=== PATIENT | female | born 1965 | race Caucasian/White ===

== ENCOUNTER 2017-07-04 20:33 | Emergency (ER) | payer OTHER ==
[2017-07-04] MEDS ORDERED: Amoxicillin/Clavulanate TAB* 875 MG PO ONE ×2 (20:53→20:54)
[2017-07-04 20:54] VITALS: BP 140/79
--- NOTE | 2017-07-04 21:24 | UC ---
Andrey Negro Natalie, scribed for Azael Rust MD on 07/04/17 at 2056 . Bite Injury/Animal HPI - HPI Summary HPI Summary: The patient is a 52 y/o F presenting to c/o cat bite on right hand at 10:00 today. She was sitting on the couch when her dog sat on her cat, and she went to move the dog when her cat clamped on to her hand and created four puncture wounds. There is red streaking going up her right wrist with some bleeding from the wound. Her whole hand is erythematous. She is UTD on her tetanus shot, and she had a rabies vaccine two years ago. - History of Current Complaint Stated Complaint: ANIMAL BITE Hx Obtained From: Patient Hx Last Menstrual Period: JULY Severity Currently: Moderate Severity Initially: Moderate Pain Scale Used: 0-10 Numeric Onset/Duration: Sudden Onset, Lasting Hours - started at 10:00 today, Still Present Type of Bite: Animal - domesticated cat Character: Puncture Aggravating Factor(s): Nothing Alleviating Factor(s): Nothing Associated Signs And Symptoms: Positive: Erythema - Allergies/Home Medications Allergies/Adverse Reactions: Allergies Allergy/AdvReac Type Severity Reaction Status Date / Time doxycycline Allergy GI Upset Verified 07/04/17 20:54 MS Sulfa Drugs Allergy Rash Verified 02/16/15 18:14 'cillins Allergy Unknown Uncoded 02/16/15 18:14 Reaction Details fruit skins, almonds Allergy Swelling Uncoded 02/16/15 18:14 PMH/Surg Hx/FS Hx/Imm Hx - Surgical History Surgical History: None - Family History Known Family History: Positive: Cardiac Disease - Social History Alcohol Use: Occasionally Alcohol Amount: 2 drinks/ week Substance Use Type: None Smoking Status (MU): Never Smoked Tobacco Review of Systems Constitutional: Other - NEGATIVE: fever Skin: Other - animal bite with four puncture wounds in right hand, erythema, red streaking up wrist All Other Systems Reviewed And Are Negative: Yes Physical Exam Triage Information Reviewed: Yes Appearance: Well-Appearing, No Pain Distress Vital Signs: Initial Vital Signs Temp 98.8 F 07/04/17 20:39 Pulse 78 07/04/17 20:39 Resp 18 07/04/17 20:39 BP 140/79 07/04/17 20:39 Pulse Ox 96 07/04/17 20:39 Vital Signs Reviewed: Yes Eyes: Positive: Other: - EOMI, LIYAH ENT: Positive: Normal ENT inspection Neck: Positive: Supple, Nontender Respiratory: Positive: Other: - CTA, breath sounds present Cardiovascular: Positive: RRR Abdomen Description: Positive: Nontender, Soft Bowel Sounds: Positive: Present Musculoskeletal Exam: Normal Musculoskeletal: Positive: Strength Intact, ROM Intact Neurological: Positive: Other: - normal, sensory/motor intact, A&O 3x Psychological: Positive: Other: - affect/mood appropriate Skin: Positive: Other - warm, color reflects adequate perfusion, dry, right thumb pad has four puncture wounds, one is losing a small amount of blood, whole pad is erythematous, streak coming up wrist 10 cm in length Bite Injury Course/Dx - Course Course Of Treatment: Medications reviewed. Allergies noted. BP noted and advised to follow up with PCP. BITES ARE AT THE BASE OF THE THUMB AND DO NOT APPEAR TO BE IN ANY JOINT. NO PAIN WITH PASSIVE ROM. THERE IS AN ERYTHEMATOUS STREAK APPROXIMATELY 10CM PROXIMAL TO THE PUNCTURE WOUNDS. WE DISCUSSED IF SHE WORSENS, SHE NEEDED TO GO TO THE ED FOR FURTHER EVALATION AND CARE AND PROBABLE IV ANTIBIOTICS WITH POSSIBLE ADMISSION. - Differential Dx/Diagnosis Provider Diagnoses: RIGHT HAND CAT BITE WITH CELLULITIS Discharge - Sign-Out/Discharge Documenting (check all that apply): Discharge - Discharge Plan Condition: Stable Disposition: HOME Discharge Disposition Comment: The pt will be discharged home. Prescriptions: Amoxicillin/Clavulanate TAB* [Augmentin TAB 875*] 875 mg PO BID #18 tab Patient Education Materials: Animal Bite (ED), Cellulitis (ED) Referrals: Makenna Walls PA [Primary Care Provider] - Additional Instructions: FOLLOW UP WITH YOUR DOCTOR FOR THE INFECTED CAT BITE. GO TO THE EMERGENCY DEPARTMENT FOR ANY WORSENING OF YOUR CONDITION; SPREAD OF INFECTION, YOU FEEL ILL OR QUESTIONS OR CONCERNS. YOUR BLOOD PRESSURE WAS ELEVATED TODAY; FOLLOW UP WITH YOUR PRIMARY CARE DOCTOR WITHIN ONE WEEK. - Billing Disposition and Condition Condition: STABLE Disposition: HOME The documentation as recorded by the Andrey hernández Natalie accurately reflects the service I personally performed and the decisions made by me, Azael Rust MD.
== END 2017-07-04 21:22 | disposition home or self-care (01) ==
LOC: UCEAST 20:33
DX: S61.451A Open bite of right hand, initial encounter (principal); L03.113 Cellulitis of right upper limb; W55.01XA Bitten by cat, initial encounter; Y93.K9 Activity, other involving animal care; Y92.9 Unspecified place or not applicable; Z88.3 Allergy status to other anti-infective agents; Z88.2 Allergy status to sulfonamides
CPT/HCPCS: 99212; A9270-GY; G0463

== ENCOUNTER 2017-07-05 17:55 | Emergency (ER) | payer OTHER ==
[2017-07-05] MEDS ORDERED: Ibuprofen TAB* 800 MG PO ONE (19:33)
[2017-07-05] MEDS ORDERED: Ibuprofen TAB* 600 MG PO ONE (19:53)
[2017-07-05 19:56] LABS: ABS Basophils 0 10^3/ul (0-0.2); ABS Eosinophils 0.1 10^3/ul (0-0.6); ABS Lymphocytes 1.8 10^3/ul (1.0-4.8); ABS Monocytes 0.4 10^3/ul (0-0.8); ABS Nucleated RBC 0 10^3/ul; Eosinophil % 1.2 % (0-6); Hematocrit 40 % (35-47); Hemoglobin 13.3 g/dl (12.0-16.0); Lymphocyte % 21.5 % (25-47); Mean Corpuscular HGB Conc 33 g/dl (31-36); Mean Corpuscular Hemoglobin 29 pg (27-31); Mean Corpuscular Volume 88 fL (80-97); Mean Platelet Volume 8.9 um3 (7.4-10.4); Nucleated Red Blood Cells % 0.1; Platelet Count 213 10^3/ul (150-450); Red Blood Count 4.55 10^6/ul (4.0-5.4); Red Cell Distribution Width 14 % (10.5-15); White Blood Count 8.4 10^3/ul (3.5-10.8)
--- NOTE | 2017-07-05 20:03 | ED ---
Bite Injury/Animal - HPI Summary HPI Summary: 52-year-old female presents ED with complaints of Bite to right hand that began yesterday in urgent care yesterday prescribed Augmentin and wounds were cleaned. Received appropriate measures at time of visit yesterday for rabies and tetanus. Patient's bite from her pet cat. Patient states Bite was pretty significant and prolonged. States the redness and swelling has seemed to get worse since yesterday. Has only taken 2 doses of Augmentin. Does have some streaking up right forearm. States temperature was 100F earlier today. Took 400 mg of ibuprofen around 12:00 today. No other complaints. No significant past medical history. Has not been soaking hand. Has been trying to drain pus , with manual manipulation. - History of Current Complaint Chief Complaint: EDAnimalBite Stated Complaint: FEVER/POSSIBLE INFECTIONON RT HAND Time Seen by Provider: 07/05/17 19:19 Hx Obtained From: Patient Hx Last Menstrual Period: JULY Onset of Injury: Happened days ago - Yesterday Hx of Bite: Provoked by: - Patient spat dog sitting on CAT startling it Has Animal Been Immunized?: Yes Severity Initially: Moderate Severity Currently: Moderate Pain Intensity: 7 Pain Scale Used: 0-10 Numeric Character: Puncture Aggravating Factor(s): Other - Movement, touch Alleviating Factor(s): Rest Associated Signs And Symptoms: Positive: Fever - 100, Erythema, Drainage, Swelling Animal Available for Observation: Yes Animal Control Notified: No - Allergies/Home Medications Allergies/Adverse Reactions: Allergies Allergy/AdvReac Type Severity Reaction Status Date / Time Penicillins Allergy Unknown Verified 07/05/17 18:02 Reaction Details Sulfa (Sulfonamide Allergy Swelling Verified 07/05/17 18:02 Antibiotics) doxycycline AdvReac GI Upset Verified 07/05/17 18:02 fruit skins, almonds Allergy Swelling Uncoded 07/05/17 18:02 PMH/Surg Hx/FS Hx/Imm Hx Endocrine/Hematology History: Denies: Hx Diabetes, Hx Thyroid Disease Cardiovascular History: Reports: Hx Angina, Hx Hypercholesterolemia Denies: Hx Coronary Artery Disease, Hx Hypertension, Hx Myocardial Infarction , Hx Valvular Heart Disease Respiratory History: Denies: Hx Asthma, Hx Chronic Obstructive Pulmonary Disease (COPD) GI History: Denies: Hx Ulcer - Surgical History Surgery Procedure, Year, and Place: n/a - Immunization History Date of Tetanus Vaccine: up-to-date Date of Influenza Vaccine: fall 2016 Immunizations Up to Date: Yes Infectious Disease History: No Infectious Disease History: Denies: Hx Hepatitis, Hx Human Immunodeficiency Virus (HIV), Traveled Outside the [place] in Last 30 Days - Family History Known Family History: Positive: Cardiac Disease - Social History Alcohol Use: Occasionally Alcohol Amount: 2 drinks/ week Substance Use Type: Reports: None Smoking Status (MU): Never Smoked Tobacco Review of Systems Positive: Fever Cardiovascular: Negative Respiratory: Negative Positive: Myalgia, Other Positive: Rash - erythema and edema right hand Neurological: Negative All Other Systems Reviewed And Are Negative: Yes Physical Exam Triage Information Reviewed: Yes Vital Signs On Initial Exam: Initial Vitals Temp Pulse Resp BP Pulse Ox 98.0 F 88 16 150/87 96 07/05/17 17:59 07/05/17 17:59 07/05/17 17:59 07/05/17 17:59 07/05/17 17:59 Vital Signs Reviewed: Yes Appearance: Positive: Well-Appearing, No Pain Distress, Well-Nourished Skin: Positive: Warm, Skin Color Reflects Adequate Perfusion, Dry, Erythema @ - And edema of the right hand anterior and posteriorly over first digit and thenar eminence with 4 puncture wounds noted, no active drainage. No significant palpable abscess appreciated. Hot to touch. Some mild erythematous and warm streaking right forearm. Tender to touch, Other - Area was marked with purple marker.. Negative: Cyanosis @, Pale Head/Face: Positive: Normal Head/Face Inspection Neck: Positive: Supple, Nontender Respiratory/Lung Sounds: Positive: Clear to Auscultation, Breath Sounds Present. Negative: Rales, Rhonchi, Wheezes Cardiovascular: Positive: Normal, RRR, Pulses are Symmetrical in both Upper and Lower Extremities - 2+. Negative: Murmur, Rub Musculoskeletal: Positive: Normal, Strength/ROM Intact, Limited @ - Right hand especially first digit, Pain @ - With movement of the right first digit/hand., Edema Right - Hand Neurological: Positive: Normal, Sensory/Motor Intact, Alert, Oriented to Person Place, Time Diagnostics - Vital Signs Vital Signs Temp Pulse Resp BP Pulse Ox 07/05/17 17:59 98.0 F 88 16 150/87 96 - Laboratory Lab Results: Lab Results 07/05/17 Range/Units 19:45 WBC 8.4 (3.5-10.8) 10^3/ul RBC 4.55 (4.0-5.4) 10^6/ul Hgb 13.3 (12.0-16.0) g/dl Hct 40 (35-47) % MCV 88 (80-97) fL MCH 29 (27-31) pg MCHC 33 (31-36) g/dl RDW 14 (10.5-15) % Plt Count 213 (150-450) 10^3/ul MPV 8.9 (7.4-10.4) um3 Neut % (Auto) 71.5 (38-83) % Lymph % (Auto) 21.5 L (25-47) % [place] % (Auto) 5.3 (0-7) % Eos % (Auto) 1.2 (0-6) % Baso % (Auto) 0.5 (0-2) % Absolute Neuts (auto) 6.0 (1.5-7.7) 10^3/ul Absolute Lymphs (auto) 1.8 (1.0-4.8) 10^3/ul Absolute Monos (auto) 0.4 (0-0.8) 10^3/ul Absolute Eos (auto) 0.1 (0-0.6) 10^3/ul Absolute Basos (auto) 0 (0-0.2) 10^3/ul Absolute Nucleated RBC 0 10^3/ul Nucleated RBC % 0.1 Result Diagrams: 07/05/17 19:45 07/05/17 19:45 Lab Statement: Any lab studies that have been ordered have been reviewed, and results considered in the medical decision making process. Re-Evaluation - Re-Evaluation First Eval Re-Evaluation Time: 21:30 Change: Improved - Looking and feeling better after soaking. Updated no labs. Bite Injury Course/Dx - Course Course Of Treatment: Soaked patient's hand in Hibiclens. Given ibuprofen. Patient took second dose of Augmentin. Given 1 dose of Zosyn IV. Blood cultures obtained and pending. Labs obtained and unremarkable. No signs of sepsis or bacteremia at this time. Patient aware worsening signs and symptoms to watch out for and return to ED if occur in the next 24 hours. Erythema was marked with purple marker. Continue ibuprofen at home along with Augmentin. She did not have any allergic reactions After medication administered while in ED. Increase fluid intake, rest, elevate. Keep clean and dry. Follow-up with PCP in 2 days. Spoke with and Tiffany about case. Along with Dr Parker who agrees she has not yet failed outpatient therapy with only taking 2 doses of Augmentin. Animal bite paperwork was filled out yesterday while at urgent care and tetanus and rabies was discussed/updated. Therefore not required to do again today - Diagnoses Differential Diagnosis/HQI/PQRI: Positive: Cellulitis, Superficial Infection, Deep Space Infection, Tenosynovitis, Other - CAT Bite Provider Diagnosis: Cellulitis of right hand Discharge - Sign-Out/Discharge Documenting (check all that apply): Discharge - Discharge Plan Condition: Good Disposition: HOME Patient Education Materials: Animal Bite (ED) Referrals: Makenna Walls PA [Primary Care Provider] - Additional Instructions: Continue taking Augmentin as prescribed. Do not miss a dose. Take until entire dose is finished. After the next 24 hours if redness (significantly outside the marked area), swelling, discharge, streaking, fever/chills, vomiting occur or worsen please return to ED immediately as we discussed. Follow-up with PCP 2 days to ensure improvement. Continue warm soaks multiple times daily. Continue ibuprofen for pain and inflammation. - Billing Disposition and Condition Condition: GOOD Disposition: HOME
[2017-07-05 20:13] LABS: EGFR Non-African American 55.4 (>60)
[2017-07-05] MEDS ORDERED: NS 0.9% 1000 ML* 1,000 ML IV ONE (20:42)
[2017-07-05] MEDS ORDERED: Piperacillin/Tazobac ADVAN(*) 3.375 GM in NS 0.9% 100 ML* 100 ML IVPB ONE (20:42)
[2017-07-05 22:18] VITALS: BP 123/76
== END 2017-07-05 22:15 | disposition home or self-care (01) ==
LOC: ED 17:55
DX: L03.113 Cellulitis of right upper limb (principal); E78.00 Pure hypercholesterolemia, unspecified; I20.9 Angina pectoris, unspecified; Z88.0 Allergy status to penicillin; Z88.2 Allergy status to sulfonamides
CPT/HCPCS: 36415; 80053; 83605; 85025; 87040; 96365; 99283; A9270-GY; J2543

== ENCOUNTER 2018-07-11 19:18 | Emergency (ER) | payer OTHER ==
[2018-07-11 21:33] VITALS: BP 122/77
--- NOTE | 2018-07-11 21:41 | UC ---
FLU HPI - HPI Summary HPI Summary: 53 year old female with c/o 1 week of intermittent fever, night sweats, non- productive cough, decreased appetite, nasal congestion, b/l ear pain, R worse then L, headache. - History of Current Complaint Stated Complaint: SORE THROAT,BILATERAL EAR CONCERN Time Seen by Provider: 07/11/18 21:26 Hx Obtained From: Patient Hx Last Menstrual Period: JULY ?: No Onset/Duration: Sudden Onset, Lasting Days Severity Currently: Moderate Severity Initially: Moderate Associated Signs & Symptoms: Positive: Fever, F/C, Myalgia, Cough, Sore Throat, Nasal Congestion, Headache - Allergy/Home Medications Allergies/Adverse Reactions: Allergies Allergy/AdvReac Type Severity Reaction Status Date / Time Penicillins Allergy Unknown Verified 07/11/18 21:27 Reaction Details Sulfa (Sulfonamide Allergy Swelling Verified 07/11/18 21:27 Antibiotics) doxycycline AdvReac GI Upset Verified 07/11/18 21:27 fruit skins, almonds Allergy Swelling Uncoded 07/11/18 21:27 Home Medications: Home Medications Omeprazole CAP (NF) [Prilosec CAP* 20 MG] 20 mg PO BID 07/11/18 [History Confirmed 07/11/18] PMH/Surg Hx/FS Hx/Imm Hx Previously Healthy: Yes - Surgical History Surgical History: None Surgery Procedure, Year, and Place: n/a - Family History Known Family History: Positive: Cardiac Disease - Social History Alcohol Use: Occasionally Alcohol Amount: 2 drinks/ week Substance Use Type: None Smoking Status (MU): Never Smoked Tobacco Review of Systems All Other Systems Reviewed And Are Negative: Yes Constitutional: Positive: Fever, Chills, Fatigue Respiratory: Positive: Cough Is Patient Immunocompromised?: No Physical Exam Triage Information Reviewed: Yes Appearance: No Pain Distress, Well-Nourished, Ill-Appearing - mild Vital Signs Reviewed: Yes Eyes: Positive: Conjunctiva Clear ENT: Positive: Pharynx normal, TMs normal, Sinus tenderness, Uvula midline Neck: Positive: Supple, Nontender, No Lymphadenopathy. Negative: Nuchal Rigidity, Enlarged Nodes @ Respiratory: Positive: Chest non-tender, Lungs clear, Normal breath sounds, No respiratory distress, No accessory muscle use. Negative: Crackles, Rhonchi, Stridor, Wheezing Cardiovascular: Positive: RRR Psychological Exam: Normal Skin Exam: Normal Flu Course/Dx - Course Course Of Treatment: sinusitis, abx given, followup with primary physician if no improvement within 2 -3 days - Differential Dx/Diagnosis Provider Diagnosis: Sinusitis Discharge - Sign-Out/Discharge Documenting (check all that apply): Patient Departure All imaging exams completed and their final reports reviewed: No Studies - Discharge Plan Condition: Good Disposition: HOME Prescriptions: Azithromycin TAB* [Zithromax TAB (Z-AIDA) 250 mg #6 tabs] 250 mg PO DAILY #4 tab Patient Education Materials: Sinusitis (ED) Referrals: Makenna Walls PA [Primary Care Provider] - Additional Instructions: - Increase fluid intake - Follow up with primary if no improvement within 2-4 days - Motrin/ tylenol as needed for pain - antibiotics as directed - GO to ER with fever > 102, increased pain, neck stiffness, headache - Billing Disposition and Condition Condition: GOOD Disposition: Home
[2018-07-11] MEDS ORDERED: Azithromycin TAB* 250 MG PO ONE (21:54)
== END 2018-07-11 21:59 | disposition home or self-care (01) ==
LOC: UCCORT 19:18
DX: J32.9 Chronic sinusitis, unspecified (principal); Z88.1 Allergy status to other antibiotic agents; Z88.0 Allergy status to penicillin; Z88.2 Allergy status to sulfonamides; Z91.018 Allergy to other foods
CPT/HCPCS: 99212; A9270-GY; G0463